=== PATIENT | male | born 1975 | race Caucasian/White ===

== ENCOUNTER 2019-11-15 21:05 | Emergency (ER) | payer BC, SELFPAY ==
--- NOTE | ~2019-11-15 | XR_ITS ---
EXAMINATION: XR chest 2V 11/15/2019 21:54 INDICATION: Chest pressure PROCEDURE: 2 view chest COMPARISON: No prior studies for comparison. FINDINGS: The lungs are clear. The cardiomediastinal silhouette is within normal limits. There are no pleural effusions. There is no pneumothorax suspected. IMPRESSION: 1: NO ACUTE CARDIOPULMONARY DISEASE. Reviewed, dictated and finalized at location A.
[2019-11-15 21:15] VITALS: BP 152/89; PULSE 75; RESP 18; TEMP 36.7; O2SAT 97
--- NOTE | 2019-11-15 21:19 | ECG_ITS ---
Measurements Intervals [place] Rate: 70 P: 29 NH: 204 QRS: 28 QRSD: 101 T: 2 QT: 369 QTc: 400 Interpretive Statements SINUS RHYTHM NORMAL ECG Electronically Signed On 11-16-2019 7:10:52 CDT by Linden Sebastian D.O.
--- NOTE | 2019-11-15 21:32 | ED.HA ---
HPI - Headache General Chief Complaint: Headache Stated Complaint: blood pressure is high Time Seen by Provider: 11/15/19 21:08 Source: patient Mode of arrival: ambulatory Limitations: no limitations History of Present Illness HPI Narrative: 44-year-old previously well man comes in today complaining of elevated blood pressure (160/100) at his father's home this evening. Patient states for the last 3 or so days he has had diffuse headache that ranges from a 1 to 3/10. He states he has also had some mild chest pressure which he describes as his heart beating harder than usual. He is concerned that his symptoms are from his elevated blood pressure. He denies shortness of breath, lightheaded, nausea, vomiting, cough or cold symptoms, sinus pressure, seasonal allergies, smoking, fever, recent head injury, or history of seizures. MD elicited complaint: headache Onset (ago): day(s) Onset description: gradually Location: diffuse Quality & Timing: dull Exacerbating factors: none Relieving factors: nothing Treatments prior to arrival: ibuprofen Related Data Home Medications Medication Instructions Recorded Confirmed No Home Medications 11/15/19 11/15/19 Allergies Allergy/AdvReac Type Severity Reaction Status Date / Time Penicillins Allergy Unknown Verified 11/15/19 21:22 Review of Systems Constitutional: Constitutional: Denies chills, Denies fever(s) and Denies weakness Eyes: Eyes: Denies change in vision and Denies photophobia ENT: Denies dysphagia, Denies nasal congestion and Denies sore throat Cardiovascular: Cardiovascular: Denies chest pain and Denies radiating jaw, neck or arm pain Respiratory: Respiratory: Denies cough, Denies dyspnea and Denies wheezing Gastrointestinal: Gastrointestinal: Denies abdominal pain, Denies nausea and Denies vomiting Musculoskeletal: Musculoskeletal: Denies back pain, Denies arthralgias and Denies joint swelling Integumentary/Breasts: Skin/Breast: Denies pruritus, Denies erythema and Denies rash Neurologic: Denies vertigo, Denies dizziness and Denies syncope Psychiatric: Psychiatric: Denies anxiety and Denies depression Endocrine: Endocrine: Denies polydipsia and Denies polyuria Hematologic/Lymphatic: Hematologic/Lymphatic: Denies easy bleeding and Denies easy bruising Allergic/Immunologic: Allergic/Immunologic: Denies lip swelling and Denies wheezing PMFSH Surgical History Surgical History H/O hand surgery History of appendectomy Social History Social History Smoking status: Never smoker Alcohol intake: current Substance use: never Living arrangements: with family Exam Const: General: healthy appearing, no acute distress and alert Nutritional Appearance: obese Orientation/consciousness: patient oriented x3 HENMT: Ears: external ears normal, TM's normal bilaterally and EAC's normal Mouth: Yes Normal oral and palatal mucosa present and Yes moist mucous membranes abnormal Throat: posterior oropharynx normal and uvula midline Eyes: Conjunctivae: conjunctivae normal Pupils: Equal, round and reactive pupils present EOM: EOMs intact bilaterally Resp: Effort & Inspection: normal respiratory effort and not labored Auscultation: clear to auscultation bilaterally, no rales, no rhonchi and no wheezes Cardio: Rate: regular rate Rhythm: regular rhythm Heart sounds: no murmurs Skin: General skin exam: normal color, no jaundice and no pallor Rashes: no rashes Neuro: General: patient oriented x3, moves all extremities, no focal motor deficits and CN's II-XI intact bilaterally Speech: normal speech Extrem: General: normal to inspection and no clubbing, cyanosis or edema Psych: Appearance: grossly normal and well kempt Mental Status: mental status grossly normal Affect: normal affect Attitude: cooperative Thought content: Yes Normal thought cont
[2019-11-15] MEDS: ASPIRIN 81 MG CHEWABLE TABLET 324 MG PO (21:34)
[2019-11-15 21:53] LABS: Basophils Absolute Auto 0.05 K/mm3 (0.00-0.10); Basophils Percent Auto 0.5 % (0.0-1.0); Eosinophils Absolute Auto 0.23 K/mm3 (0.02-0.50); Eosinophils Percent Auto 2.4 % (1.0-6.0); Hematocrit 43.4 % (40.0-54.0); Hemoglobin 14.5 g/dL (14.0-18.0); Immature Granulocyte Absolute 0.04 K/mm3 (0.00-0.00); Immature Granulocyte Percent A 0.4 % (0.0-0.0); Lymphocytes Absolute Auto 3.02 K/mm3 (1.10-4.50); Lymphocytes Percent Auto 31.7 % (18.0-42.0); Mean Corpuscular HGB Conc 33.4 g/dL (32.0-36.0); Mean Corpuscular Hemoglobin 29.5 pg (27.0-31.0); Mean Corpuscular Volume 88.4 fL (78.0-102.0); Mean Platelet Volume 9.8 fl (8.7-11.0); Monocytes Absolute Auto 0.88 K/mm3 (0.10-0.90); Monocytes Percent Auto 9.2 % (2.0-11.0); Neutrophils Absolute Auto 5.3 K/mm3 (1.7-7.2); Neutrophils Percent Auto 55.8 % (50.0-70.0); Platelet Count Result 311 K/mm3 (150-420); Red Blood Count 4.91 M/mm3 (4.70-6.10); Red Cell Distribution Width 12.7 % (11.6-14.4); White Blood Count 9.5 K/mm3 (4.8-10.8)
[2019-11-15 22:05] LABS: Partial Thromboplastin Time 25.5 SEC (22.3-31.6); Prothrombin Time 10.5 Seconds (9.64-11.0)
[2019-11-15 22:07] LABS: D Dimer 0.19 mg/L (0.19-0.50)
[2019-11-15 22:09] LABS: Alanine Aminotransferase 50 U/L (16-63); Albumin Level 3.8 g/dL (3.4-5.0); Alkaline Phosphatase 70 U/L (46-116); Anion Gap 13.7 mmol/L (7-16); Aspartate Amino Transferase 29 U/L (15-37); Bilirubin,Total 0.3 mg/dL (0.00-1.00); Blood Urea Nitrogen 15 mg/dL (7-18); Calcium 8.8 mg/dL (8.5-10.1); Carbon Dioxide 28 mmol/L (21-32); Chloride 105 mmol/L (98-108); Estimated CRCL calculation 100 ml/min; Estimated Glomerular Filt Rate > 60; Glucose 94 mg/dL (70-99); Osmolality Calculated 296 mOsm/kg (285-295); Potassium 3.7 mmol/L (3.5-5.1); Sodium 143 mmol/L (136-145); Total Protein 7.2 g/dL (6.4-8.2)
[2019-11-15 22:10] LABS: Troponin I < 0.02 ng/mL (0.00-0.056)
[2019-11-15 22:11] LABS: BNP 17.7 pg/mL (0-100)
[2019-11-15 22:39] VITALS: BP 135/76; PULSE 85; RESP 18; TEMP 36.6; O2SAT 98
== END 2019-11-15 22:43 | disposition home or self-care (01) ==
LOC: CHSED 21:10
PROVIDERS: Emergency Provider Emergency Medicine; PCP Internal Medicine
DX: R51 Headache (principal); R07.89 Other chest pain
CPT/HCPCS: 36415; 71046; 80053; 83880; 84484; 85025; 85380; 85610; 85730; 93005; 99283; 99284; A9270

== ENCOUNTER 2020-03-06 13:34 | Emergency (ER) | payer BC, SELFPAY ==
--- NOTE | ~2020-03-06 | XR_ITS ---
XR wrist LT min 3V 03/06/2020 14:01 INDICATION: Recent fall. Left wrist pain. PROCEDURE: 4 views left wrist COMPARISON: No prior studies for comparison. FINDINGS: Fracture, dislocation or subluxation is not identified. There is a side plate and screws tr ansfixing the fifth metacarpal. The soft tissues appear within normal limits. No foreign bodies are identified. IMPRESSION: 1: NO ACUTE BONE OR JOINT ABNORMALITY IDENTIFIED. Reviewed, dictated and finalized at location B.
--- NOTE | ~2020-03-06 | US_ITS ---
EXAMINATION: US venous doppler [facility] DATE: 03/06/2020 14:47 INDICATION: Left arm pain and swelling after recent fall TECHNIQUE: Peck scale images with and without compression and Doppler images of the left upper extrem ity veins were obtained. COMPARISON: None. FINDINGS: The left internal jugular vein, subclavian vein, axillary vein, brachial veins, basilic vein, cephali c vein, radial vein, and ulnar vein are patent.] IMPRESSION: 1. Patent left upper extremity veins. No evidence of deep venous thrombosis. Reviewed, dictated and finalized at location B.
--- NOTE | ~2020-03-06 | XR_ITS ---
XR elbow LT min 3V, XR forearm LT 2V 03/06/2020 14:01 Indication: Status post fall. Left arm pain. Procedure: 4 views left elbow and 2 views left forearm Comparison: No prior studies for comparison. Findings: No acute fracture or traumatic malalignment. No significant soft tissue abnormality. No rad iopaque foreign bodies. Impression: 1: No acute fracture. Reviewed, dictated and finalized at location B. Impression: 1: No acute fracture. Impression: 1: No acute fracture.
[2020-03-06 13:39] VITALS: BP 158/82; PULSE 69; RESP 20; TEMP 36.2; O2SAT 97
--- NOTE | 2020-03-06 14:12 | ECG_ITS ---
Measurements Intervals [place] Rate: 58 P: 50 UT: 211 QRS: 18 QRSD: 101 T: 4 QT: 406 QTc: 402 Interpretive Statements SINUS BRADYCARDIA WITH FIRST DEGREE AV BLOCK BORDERLINE T WAVE ABNORMALITY- INFERIOR LEADS ABNORMAL ECG Electronically Signed On 03-06-2020 16:12:42 CDT by Linden Sebastian D.O.
--- NOTE | 2020-03-06 14:22 | ED.GENADULT ---
HPI - General Adult General Chief complaint: Extremity Injury, Upper Stated complaint: left arm pain Time Seen by Provider: 03/06/20 13:52 Source: patient Mode of arrival: ambulatory Limitations: no limitations History of Present Illness HPI narrative: Patient is a 44-year-old male who presents to emergency department for evaluation of left arm pain noting tenderness and swelling of the left forearm patient notes this is been present for 3 days has been taking ibuprofen with minimal improvement patient notes that he had injured the hand 2 weeks ago but felt as though that had improved patient denies other complaints other than this morning having experienced some nausea Related Data Allergies Allergy/AdvReac Type Severity Reaction Status Date / Time Penicillins Allergy Unknown Verified 11/15/19 21:22 Review of Systems Review of Systems: All systems reviewed & are unremarkable except as noted in HPI and below PMFSH Surgical History Surgical History H/O hand surgery History of appendectomy Social History Social History Smoking status: Never smoker Alcohol intake: current Substance use: never Gender identity (if verbalized by the patient): Male Sexual Orientation (if Verbalized by the Patient): Straight or Heterosexual Exam Narrative: Exam Narrative: GENERAL: Well-appearing, well-nourished, and in no acute distress. HEAD: Normocephalic, atraumatic. EYES: PERRLA and EOMI. ENT: Nares clear, no rhinorrhea or epistaxis. Mucous membranes moist. CHEST: Clear to auscultation. No respiratory distress. No wheezes rales or rhonchi HEART: Regular rate and rhythm. No murmur heard. Normal peripheral pulses. EXTREMITIES: Normal range of motion. No edema. Tenderness of the left forearm with no erythema or deformities noted majority of tenderness is along the mid aspect of the forearm distal and proximal there is no deformity noted the tissues are soft SKIN: Warm, dry, no rash. NEURO: No focal deficits. Alert and oriented x3. Neurovascularly intact. Capillary refill less than 2 seconds PSYCH: Normal mood and affect. Course Course Emergency Course: Patient in the room at this time in no distress aware of case findings treatment plan and diagnosis felt appropriate for outpatient reevaluation Vital Signs Vital signs: Vital Signs Temperature 97.1 F L 03/06/20 13:39 Pulse Rate 69 09/18/20 13:39 Respiratory Rate 03/06/20 13:39 Blood Pressure 158/82 H 03/06/20 13:39 Pulse Oximetry 97 03/06/20 13:39 Temperature 97.1 F L 03/06/20 13:39 Pulse Rate 69 03/06/20 13:39 Respiratory Rate 03/06/20 13:39 Blood Pressure 158/82 H 03/06/20 13:39 Pulse Oximetry 97 03/06/20 13:39 Medical Decision Making MDM Narrative Medical decision making narrative: Patients injury or pain is consistent with musculoskeletal etiology. No signs of neurological or vascular compromise on exam. Compartments and tisues are soft without signs of compartment syndrome. Pain is felt appropriate for further evaluation on an outpatient basis. Vital Signs Vital Signs: Vital Signs Temperature 97.1 F L 03/06/20 13:39 Pulse Rate 03/06/20 13:39 Respiratory Rate 03/06/20 13:39 Blood Pressure 158/82 H 03/06/20 13:39 Pulse Oximetry 97 03/06/20 13:39 Temperature 97.1 F L 03/06/20 13:39 Pulse Rate 03/06/20 13:39 Respiratory Rate 03/06/20 13:39 Blood Pressure 158/82 H 03/06/20 13:39 Pulse Oximetry 97 03/06/20 13:39 Lab Data Result diagrams: 03/06/20 14:50 03/06/20 14:50 Labs: Lab Results 03/06/20 03/06/20 03/06/20 Range/Units 14:50 14:50 14:50 WBC 8.0 (4.5-10.0) K/mm3 RBC 5.28 (4.6-6.20) M/mm3 Hgb 15.7 (14.0-18.0) g/dL Hct 47.0 (42.0-52.0) % MCV 89.0 (80-100) fl MCH 29.7 (26-34) pg MCHC 33.4 (32-36)
[2020-03-06 14:58] LABS: Basophils Percent Auto 0.5 % (0.2-1.2); Eosinophils Absolute Auto 0.2 K/mm3 (0-0.3); Eosinophils Percent Auto 2.5 % (0-4.4); Hemoglobin 15.7 g/dL (14.0-18.0); Immature Granulocyte Absolute 0.01 K/mm3 (0.00-0.031); Immature Granulocyte Percent A 0.1 % (0-0.5); Lymphocytes Absolute Auto 2.37 K/mm3 (0.9-3.2); Lymphocytes Percent Auto 29.7 % (18.3-44.2); Mean Corpuscular HGB Conc 33.4 g/dl (32-36); Mean Corpuscular Hemoglobin 29.7 pg (26-34); Monocytes Absolute Auto 0.7 K/mm3 (0.1-0.6); Monocytes Percent Auto 8.3 % (2.6-8.5); Neutrophils Absolute Auto 4.7 K/mm3 (1.3-6.7); Neutrophils Percent Auto 58.9 % (45.5-73.1); Platelet Count Result 348 k/mm3 (150-375); Red Blood Count 5.28 M/mm3 (4.6-6.20); Red Cell Distribution Width 12.5 % (11.5-14.5)
[2020-03-06 15:07] LABS: Prothrombin Time 12.8 Seconds (11.1-14.7)
[2020-03-06 15:08] LABS: Partial Thromboplastin Time 28.4 SECONDS (22.3-36.8)
[2020-03-06 15:18] LABS: Alanine Aminotransferase 52 U/L (4-50); Albumin Level 4.7 g/dL (3.5-5.1); Alkaline Phosphatase 74 U/L (38-126); Anion Gap 7 mmol/L (8-16); Aspartate Amino Transferase 44 U/L (17-59); Bilirubin,Total 0.6 mg/dL (0.2-1.3); Blood Urea Nitrogen 16 mg/dL (9-20); Calcium 9.8 mg/dL (8.4-10.2); Carbon Dioxide 27 mmol/L (22-30); Chloride 104 mmol/L (98-107); Estimated CRCL calculation 116 ml/min; Estimated Glomerular Filt Rate > 60; Glucose 108 mg/dL (75-110); Potassium 3.9 mmol/L (3.4-5.0); Sodium 138 mmol/L (137-145)
[2020-03-06 15:30] LABS: Troponin I < 0.012 ng/mL (0.000-0.034)
[2020-03-06 16:12] VITALS: BP 136/88; PULSE 74; RESP 17; O2SAT 99
== END 2020-03-06 16:13 | disposition home or self-care (01) ==
PROVIDERS: Emergency Medicine Emergency Medical Services; Emergency Provider Emergency Medicine; PCP Internal Medicine
DX: M79.632 Pain in left forearm (principal); I44.0 Atrioventricular block, first degree
CPT/HCPCS: 36415; 73080; 73090; 73110; 80053; 84484; 85025; 85610; 85730; 93005; 93971; 99284

== ENCOUNTER 2020-06-20 06:34 | Outpatient (CLI) | payer BC, SELFPAY ==
--- NOTE | ~2020-06-20 | MR_ITS ---
EXAMINATION: MR cervical spine wo con DATE: 06/20/2020 11:29 INDICATION: Pain in unspecified joint. Pain between the shoulder blades. TECHNIQUE: Magnetic resonance imaging (MRI) of the cervical spine was performed without intravenous c ontrast. Sequences included sagittal T2-weighted FSE, sagittal T2-weighted FS FSE, sagittal T1-weight ed FSE, axial MERGE, and axial T2-weighted FSE. COMPARISON: None FINDINGS: Bone alignment is normal. Vertebral body heights and intervertebral disc heights are normal . The spinal cord signal intensity is normal. The following disc levels are specifically discussed: C2-C3: The disc does not extend beyond the endplate margin. There is no uncovertebral joint osteoarth ritis. There is moderate left facet joint osteoarthritis. There is mild left neural foraminal stenosi s. There is no central canal stenosis. C3-C4: The disc does not extend beyond the endplate margin. There is mild right uncovertebral joint o steoarthritis. There is mild right and moderate left facet joint osteoarthritis. There is mild left n eural foraminal stenosis. There is no central canal stenosis. C4-C5: The disc does not extend beyond the endplate margin. There is no uncovertebral joint osteoarth ritis. There is mild right and moderate left facet joint osteoarthritis. There is no neural foraminal stenosis. There is no central canal stenosis. C5-C6: The disc does not extend beyond the endplate margin. There is no uncovertebral joint osteoarth ritis. There is mild bilateral facet joint osteoarthritis. There is no neural foraminal stenosis. The re is no central canal stenosis. C6-C7: The disc does not extend beyond the endplate margin. There is no uncovertebral joint osteoarth ritis. There is mild bilateral facet joint osteoarthritis. There is no neural foraminal stenosis. The re is no central canal stenosis. C7-T1: The disc does not extend beyond the endplate margin. There is no uncovertebral joint osteoarth ritis. There is mild bilateral facet joint osteoarthritis. There is no neural foraminal stenosis. The re is no central canal stenosis. IMPRESSION: 1. Mild cervical spondylosis. Reviewed, dictated and finalized at location A. OR DIRECTOR INSIGHT
--- NOTE | ~2020-06-20 | MR_ITS ---
EXAMINATION: MR lumbar spine wo con DATE: 06/20/2020 11:29 INDICATION: Pain in unspecified joint. TECHNIQUE: Magnetic resonance imaging (MRI) of the lumbar spine was performed without intravenous con trast. Sequences included sagittal T2-weighted FSE, sagittal STIR FSE, sagittal T2-weighted FS FSE, s agittal T1-weighted FSE, and axial T2-weighted FSE. COMPARISON: None FINDINGS: Bone alignment is normal. Vertebral body heights are normal. There is mildly decreased disc height at L5-S1. There is developmental osseous central canal stenosis from L2 to L4. The distal spi nal cord signal intensity is normal. The conus medullaris is at L1. The following disc levels are spe cifically discussed: L1-L2: The disc does not extend beyond the endplate margin. There is no facet joint osteoarthritis. T here is no neural foraminal stenosis. There is no central canal stenosis. L2-L3: The disc does not extend beyond the endplate margin. There is mild right facet joint osteoarth ritis. There is no neural foraminal stenosis. There is mild central canal stenosis. L3-L4: The disc does not extend beyond the endplate margin. There is no facet joint osteoarthritis. T here is no neural foraminal stenosis. There is mild central canal stenosis. L4-L5: There is a left central protrusion with annular fissure. There is mild bilateral facet joint o steoarthritis. There is mild left neural foraminal stenosis. There is mild central canal stenosis. L5-S1: There is a left central protrusion with annular fissure. There is mild bilateral facet joint o steoarthritis. There is moderate right and mild left neural foraminal stenosis. There is mild central canal stenosis. IMPRESSION: 1. Mild lumbar spondylosis. Reviewed, dictated and finalized at location A. CER MACHINE OPERATOR IMPRESSION: 1. Mild lumbar spondylosis.
--- NOTE | ~2020-06-20 | MR_ITS ---
EXAMINATION: MR thoracic spine wo con DATE: 06/20/2020 11:29 INDICATION: Pain at unspecified joint. TECHNIQUE: Magnetic resonance imaging (MRI) of the thoracic spine was performed without intravenous c ontrast. Sagittal localizer T1-weighted FSE of the cervical spine was obtained. Thoracic spine sequen lynn included sagittal T2-weighted FSE, sagittal T1-weighted FSE, sagittal T2-weighted FS FSE, and axi al T2-weighted FSE. COMPARISON: None FINDINGS: Bone alignment is normal. There is mild chronic anterior wedging of T7 and T8 vertebral bod ies. There is mildly decreased disc height at T6-T7 and T7-T8 with endplate remodeling. At T7-T8, the re is a central protrusion with mild central canal stenosis and ventral indentation of the spinal cor d. The spinal cord signal intensity is normal. At T6, there is focal anterior displacement of the spi nal cord and decreased anteroposterior dimension of the spinal cord. There is mild facet joint osteoa rthritis at a few levels. No neural foraminal stenosis. IMPRESSION: 1. Deformation of the spinal cord at T6, which may be from cord herniation or an arachnoid cyst. 2. Mild thoracic spondylosis. Reviewed, dictated and finalized at location A. MENT STITCHER IMPRESSION: 1. Deformation of the spinal cord at T6, which may be from cord herniation or a n arachnoid cyst. 2. Mild thoracic spondylosis.
== END 2020-06-20 06:35 | disposition home or self-care (01) ==
PROVIDERS: PCP Family Medicine; Visit Provider Family Medicine
DX: M25.50 Pain in unspecified joint (principal)
CPT/HCPCS: 72141; 72146; 72148

== ENCOUNTER 2020-06-20 08:35 | Outpatient (CLI) | payer BC, SELFPAY ==
[2020-06-20 09:55] LABS: Erythrocyte Sedimentation Rate 6 mm/hr (0-15)
[2020-06-20 10:02] LABS: Rheumatoid Factor Screen Negative (Negative)
[2020-06-20 10:07] LABS: Cholesterol 246 mg/dL (0-200); Ferritin 256 ng/mL (26-388); HDL Direct 40 mg/dL (40-60); Iron 85 ug/dL (65-175); LDL Cholesterol Calculated 177 mg/dL (<130); Percent Iron Saturation 24 % (12-57); Triglycerides 146 mg/dL (0-150)
[2020-06-20 10:37] LABS: CRP < 0.2 mg/dL (0.0-0.9)
[2020-06-23 18:53] LABS: Lyme Disease Ab (IgM), Blot Positive (Negative); Lyme Disease Ab(IgG), Blot Negative (Negative)
== END 2020-06-20 08:36 | disposition home or self-care (01) ==
LOC: CHSLAB 08:36
PROVIDERS: PCP Family Medicine; Visit Provider Family Medicine
DX: M25.50 Pain in unspecified joint (principal); E66.01 Morbid (severe) obesity due to excess calories
CPT/HCPCS: 36415; 80061; 82728; 83540; 83550; 84443; 84550; 85652; 86038; 86140; 86430; 86617

== ENCOUNTER 2023-01-24 10:16 | Outpatient (CLI) | payer OTHER, SELFPAY ==
--- NOTE | 2023-01-24 10:48 | ECG_ITS ---
Measurements Intervals [place] Rate: 77 P: 57 PA: 164 QRS: 70 QRSD: 107 T: 36 QT: 360 QTc: 408 Interpretive Statements SINUS RHYTHM WITH BORDERLINE FIRST-DEGREE AV BLOCK WITHIN NORMAL LIMITS COMPARED TO ECG 03/06/2020 16:08:35 NO DIFFERENCE Electronically Signed On 01-24-2023 13:30:02 CDT by Kb Wakefield M.D.
[2023-01-24 10:50] LABS: Basophils Absolute Auto 0.04 K/mm3 (0.00-0.10); Basophils Percent Auto 0.5 % (0.0-1.0); Eosinophils Percent Auto 2.6 % (1.0-6.0); Hematocrit 47.2 % (40.0-54.0); Hemoglobin 15.8 g/dL (14.0-18.0); Immature Granulocyte Absolute 0.02 K/mm3 (0.00-0.00); Immature Granulocyte Percent A 0.3 % (0.0-0.0); Lymphocytes Absolute Auto 2.26 K/mm3 (1.10-4.50); Lymphocytes Percent Auto 29.3 % (18.0-42.0); Mean Corpuscular HGB Conc 33.5 g/dL (32.0-36.0); Mean Corpuscular Hemoglobin 29.4 pg (27.0-31.0); Mean Corpuscular Volume 87.9 fL (78.0-102.0); Mean Platelet Volume 9.7 fl (8.7-11.0); Monocytes Absolute Auto 0.66 K/mm3 (0.10-0.90); Monocytes Percent Auto 8.5 % (2.0-11.0); Neutrophils Absolute Auto 4.5 K/mm3 (1.7-7.2); Neutrophils Percent Auto 58.8 % (50.0-70.0); Platelet Count Result 346 K/mm3 (150-420); Red Blood Count 5.37 M/mm3 (4.70-6.10); Red Cell Distribution Width 12.6 % (11.6-14.4); White Blood Count 7.7 K/mm3 (4.8-10.8)
[2023-01-24 11:22] LABS: Alanine Aminotransferase 52 U/L (16-63); Albumin Level 4.1 g/dL (3.4-5.0); Alkaline Phosphatase 92 U/L (46-116); Anion Gap 11 mmol/L (8-16); Aspartate Amino Transferase 26 U/L (15-37); Bilirubin,Total 0.5 mg/dL (0.00-1.00); Blood Urea Nitrogen 19 mg/dL (7-18); Calcium 9.6 mg/dL (8.5-10.1); Carbon Dioxide 26 mmol/L (21-32); Chloride 104 mmol/L (98-108); Cholesterol 230 mg/dL (0-200); Estimated Glomerular Filt Rate > 60; Free T4 Free Thyroxine 0.83 ng/dL (0.76-1.46); Glucose 113 mg/dL (70-99); HDL Direct 48 mg/dL (40-60); Iron 78 ug/dL (65-175); LDL Cholesterol Calculated 156 mg/dL (<130); Magnesium 1.9 mg/dL (1.8-2.4); Osmolality Calculated 295 mOsm/kg (285-295); Potassium 4.6 mmol/L (3.5-5.1); Sodium 141 mmol/L (136-145); Thyroid Stimulating Hormone 1.59 uIU/mL (0.36-3.74); Total Protein 7.6 g/dL (6.4-8.2); Triglycerides 131 mg/dL (0-150)
[2023-01-24 11:38] LABS: CRP < 0.5 mg/dL (0.0-0.9)
[2023-01-25 18:10] LABS: Hemoglobin A1C 5.7 % (<5.7)
[2023-01-29 22:44] LABS: Vitamin D 25 Hydroxy 26 ng/mL (30-100)
== END 2023-01-24 10:17 | disposition home or self-care (01) ==
LOC: CHSLAB 10:18
PROVIDERS: PCP Family Medicine; Visit Provider Nurse Practitioner Family
DX: Z13.6 Encounter for screening for cardiovascular disorders (principal); E11.9 Type 2 diabetes mellitus without complications; A69.20 Lyme disease, unspecified; M25.50 Pain in unspecified joint; R53.83 Other fatigue; E66.01 Morbid (severe) obesity due to excess calories; Z79.899 Other long term (current) drug therapy
CPT/HCPCS: 36415; 80053; 80061; 82306; 83036; 83540; 83735; 84439; 84443; 85025; 86140; 93005

== ENCOUNTER 2023-12-14 14:43 | Emergency (ER) | payer OTHER, SELFPAY ==
--- NOTE | ~2023-12-14 | CT_ITS ---
EXAMINATION: CT cervical spine wo con DATE: 12/14/2023 15:11 INDICATION: Neck injury. TECHNIQUE: Computed tomography (CT) of the cervical spine was performed without intravenous contrast. Automated exposure control and iterative reconstruction technique were employed. The dose-length pro duct was 673.11 mGy-cm. COMPARISON: Cervical spine MRI 06/20/2020 FINDINGS: There is a right mastoid effusion. Alignment is normal. Vertebral body heights and interver tebral disc heights are normal. The following disc levels are specifically discussed: C2-C3: There is mild bilateral uncovertebral joint osteoarthritis. There is mild right and severe lef t facet joint osteoarthritis. There is mild left neural foraminal stenosis. There is no central canal stenosis. C3-C4: There is mild right and moderate left uncovertebral joint osteoarthritis. There is severe left facet joint osteoarthritis. There is mild left neural foraminal stenosis. There is no central canal stenosis. C4-C5: There is mild bilateral uncovertebral joint osteoarthritis. There is moderate left facet joint osteoarthritis. There is no neural foraminal stenosis. There is no central canal stenosis. C5-C6: There is mild bilateral uncovertebral joint osteoarthritis. There is mild right and moderate l eft facet joint osteoarthritis. There is mild left neural foraminal stenosis. There is no central can al stenosis. C6-C7: There is no uncovertebral joint osteoarthritis. There is no facet joint osteoarthritis. There is no neural foraminal stenosis. There is no central canal stenosis. C7-T1: There is no uncovertebral joint osteoarthritis. There is mild bilateral facet joint osteoarthr itis. There is no neural foraminal stenosis. There is no central canal stenosis. IMPRESSION: 1. No fracture. 2. Mild cervical spondylosis. Reviewed, dictated and finalized at location A.
--- NOTE | ~2023-12-14 | CT_ITS ---
EXAMINATION: CT brain wo con DATE: 12/14/2023 15:11 INDICATION: Head injury TECHNIQUE: Computed tomography (CT) of the head was performed without intravenous contrast. Sagittal and coronal reconstructions were performed. The mA was adjusted according to patient size. Iterative reconstruction technique was employed. The dose-length product was 673.11 mGy-cm. COMPARISON: None FINDINGS: No fracture. No acute intracranial hemorrhage, acute infarction or abnormal extra axial fluid collect ion. Ventricles are normal and symmetric. No mass/mass effect. Small right mastoid effusion. The orbi ts, paranasal sinuses and mastoid air cells are normal. IMPRESSION: 1. No fracture or acute intracranial process. Reviewed, dictated and finalized at location B.
[2023-12-14 14:49] VITALS: BP 164/71; PULSE 74; RESP 20; TEMP 36.8; O2SAT 95
[2023-12-14 14:58] VITALS: O2SAT 95
--- NOTE | 2023-12-14 15:07 | PC.NURSE ---
pt taken to CT of head
--- NOTE | 2023-12-14 15:26 | ED.HEATRA ---
HPI - Head Injury General Chief complaint: Head Injury Stated complaint: fall, hit head. Time Seen by Provider: 12/14/23 14:49 Source: patient and family Mode of arrival: ambulatory Limitations: no limitations History of Present Illness HPI Narrative: this is a 48 year male that presents with a head injury to the back of his head after he fell earlier today striking his head on a tractor causing lump to the occipital area with no cuts no lacerations unsure of loss of consciousness currently has a headache rates about a 6/10 feels nauseous with no neurological deficits. There is no fever chills no other injuries. Complaint: head injury Onset (ago): hour(s) Mechanism of Injury: fall Place: outdoors Loss of Consciousness: unsure Location of injury: occipital Severity: moderate Severity scale (1-10): 6 Related Data Allergies Allergy/AdvReac Type Severity Reaction Status Date / Time Penicillins Allergy Unknown Verified 12/14/23 14:59 Review of Systems Review of Systems: All systems reviewed & are unremarkable except as noted in HPI and below PMFSH Past Medical History Medical History DDD (degenerative disc disease) Diarrhea Elevated blood-pressure reading without diagnosis of hypertension Joint pain Lyme disease Morbid obesity with body mass index (BMI) of 40.0 to 49.9 T5 spinal cord injury Umbilical hernia Surgical History Surgical History H/O hand surgery History of appendectomy History of tonsillectomy and adenoidectomy Social History Social History Smoking status: Never smoker Alcohol intake: current Substance use: never Lack of Transportation: No Lack of Food: Never True Current Housing: I Have Housing Concerned About Future Housing: No Difficulty Paying Gas/Electric Bills: No Difficulty Paying for Meds: No Currently Unemployed: No Education: High School Diploma/GED Difficulty w/ Childcare or Family Care: No Living arrangements: with family Gender identity (if verbalized by the patient): Male Sexual Orientation (if Verbalized by the Patient): Straight or Heterosexual Exam Const: General: healthy appearing, no acute distress and alert Nutritional Appearance: well nourished Orientation/consciousness: patient oriented x3 Limitations: no limitations HENMT: Head: normal to inspection Eyes: Conjunctivae: conjunctivae normal Pupils: Equal, round and reactive pupils present Neck: Neck: normal visual inspection and no lymphadenopathy Chest: Chest palpation & inspection: normal inspection of the chest Resp: Effort & Inspection: normal respiratory effort Auscultation: clear to auscultation bilaterally Cardio: Rate: regular rate Rhythm: regular rhythm GI: GI Palp: Yes Soft to palpation Auscultation: normal bowel sounds Back/Spine/Pelvis: Back: no CVA tenderness Skin: General skin exam: normal color Wounds: wounds noted Neuro: General: patient oriented x3, moves all extremities, no meningeal signs and no focal motor deficits Course Course Emergency Course: Patient received 60mg IM Toradol and a dose of ODT Zofran after reassessment patient's symptoms have improved. CT scans of the brain and cervical spine reviewed and with no acute abnormalities. Vital Signs Vital signs: Vital Signs Temperature 36.8 C 12/14/23 14:49 Pulse Rate 74 12/14/23 14:49 Respiratory Rate 20 12/14/23 14:49 Blood Pressure 164/71 H 12/14/23 14:49 Pulse Oximetry 95 12/14/23 14:49 Oxygen Delivery Room Air 12/14/23 14:49 Temperature 36.8 C 12/14/23 14:49 Pulse Rate 74 12/14/23 14:49 Respiratory Rate 20 12/14/23 14:49 Blood Pressure 164/71 H 12/14/23 14:49 Pulse Oximetry 95 12/14/23 14:58 Oxygen Delivery Room Air 12/14/23 14:58 Critical Care Time Critical Care Time Critic
[2023-12-14] MEDS: KETOROLAC (*BKC) 60 MG/2 ML VIAL IM (15:28)
[2023-12-14 15:44] VITALS: BP 158/68; PULSE 69; RESP 20; TEMP 36.7; O2SAT 95
== END 2023-12-14 15:46 | disposition home or self-care (01) ==
LOC: CHSED 15:35
PROVIDERS: Emergency Provider Emergency Medicine; PCP Family Medicine
DX: S09.90XA Unspecified injury of head, initial encounter (principal); W20.8XXA Other cause of strike by thrown, projected or falling object, initial encounter
CPT/HCPCS: 70450; 72125; 96372; 99284; A9270; J1885

== ENCOUNTER 2025-02-18 09:29 | Outpatient (CLI) | payer OTHER, SELFPAY ==
[2025-02-18 09:43] LABS: Hematocrit 45.6 % (40.0-54.0); Hemoglobin 15.0 g/dL (14.0-18.0); Immature Granulocyte Percent A 0.1 % (0.0-0.0); Lymphocytes Absolute Auto 2.18 K/mm3 (1.10-4.50); Mean Corpuscular HGB Conc 32.9 g/dL (32-36); Mean Corpuscular Hemoglobin 29.5 pg (27.0-31.0); Mean Corpuscular Volume 89.6 fL (78.0-102.0); Nucleated Red Blood Cells Absolute Auto 0.00 K/mm3 (0.00-0.00); Nucleated Red Blood Cells Perc 0.0 % (0-0.0); Platelet Count Result 349 K/mm3 (150-420); Red Blood Count 5.09 M/mm3 (4.70-6.10); White Blood Count 8.1 K/mm3 (4.8-10.8)
--- OUTSIDE RECORDS SUMMARY | 2025-02-18 09:44 | XMS_ITS | Clinical Summary ---
Author Organization [facility] Add[facility] Address [address] [place] [address] Care Team Providers Care Numerical Control Machine Machinist Name Role Phone Phillip Hunt MD Primary Care Provider [phone] Source Comments [facility],non-owned Affiliates and Associated Physician Practices is amultiple site organization consisting of ambulatory clinics and hospital sitesin [place], [place], [place] and [place]. This disclosure is being madepursuant to the Care Everywhere program and may not contain all information available regarding this patient. Last updated 18.[facility] Allergies Active Allergy Reactions Criticality Noted Date Comments Penicillins Urticaria Medium 08/02/2017 Medications * Be aware that medications may not be up to date on this document. Alwaysverify current medications with the patient. azithromycin (ZITHROMAX) 250 MG tabletIndications:O ther acute nonsuppurative otitis media of right ear, recurrence not specified Take 2 tablets now, then 1 tablet daily for 4 days. 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 Gender Identity Not on file Sexual Orientation Not on file Last Filed Vital Signs Vital Sign Reading Time Taken Comments Blood Pressure 130/80 08/02/2017 6:07 PM DAIRY BACTERIOLOGIST Pulse 96 08/02/2017 6:07 PM DAIRY BACTERIOLOGIST Temperature 36.8 C (98.3 F) 08/02/2017 6:07 PM DAIRY BACTERIOLOGIST Respiratory Rate 16 08/02/2017 6:07 PM DAIRY BACTERIOLOGIST Oxygen Saturation 98% 08/02/2017 6:07 PM DAIRY BACTERIOLOGIST Inhaled Oxygen Concentration - - Weight 136.1 kg (300 lb) 08/02/2017 6:07 PM DAIRY BACTERIOLOGIST Height 177.8 cm (5' 10) 08/02/2017 6:07 PM DAIRY BACTERIOLOGIST Body Mass Index 43.05 08/02/2017 6:07 PM DAIRY BACTERIOLOGIST Plan of Treatment Health Maintenance Due Date Last Done Comments COLOGUARD (AGES 45-75) - COL ON CA SCREENING 1975 COLON MONITORING 1975 COLONOSCOPY - COLON CA SCREENING 1975 CT COLONOGRAPHY - COLON CA SCREENING 1975 Colorectal Cancer Screening 1975 FIT - COLON CA SCREENING 1975 FLEX SIG - COLON CA SCREENING 1975 LIPID TESTING 1975 HIV SCREENING 1990 HEPATITIS C SCREENING 08/06/1993 DTAP/TDAP/TD VACCINES (1 - Tdap) 1994 HEPATITIS B VACCINE (1 of 3 - 19+ 3-dose series) 1994 COVID-19 VACCINE (1 - 2023-2 5 season) 2024 DEPRESSION SCREENING 06/19/2024 INFLUENZA VACCINE (#1) 2025 ZOSTER VACCINE (1 of 2) 2025 HIB VACCINE Aged Out No longer eligi ble based on patient's age to complete this topic HPV VACCINE Aged Out No longer eligi ble based on patient's age to complete this topic MENINGOCOCCAL (Group B) VACC INE SHARED DECISION-MAKING Aged Out No longer eligibl e based on patient's age to complete this topic MENINGOCOCCAL GROUPS A/C/Y/W VACCINE Aged Out No longer eligible b ased on patient's age to complete this topic Insurance [facility] Care Teams Numerical Control Machine Machinist Relationship Specialty Start Date End Date Phillip Hunt MD [address] [id number] PCP - General Internal Medicine 08/02/17
--- OUTSIDE RECORDS SUMMARY | 2025-02-18 09:44 | XMS_ITS | Clinical Summary ---
Author Organization [facility] Address [facility] [place] [address] Care Team Providers Care Plant And Equipment Worker Name Role Phone None, Provider MD Primary Care Provider Unavaila ble Allergies Active Allergy Reactions Criticality Noted Date Comments Penicillins Hives Medium 08/02/2017 Medications meloxicam (MOBIC) 15 MG tablet Take 1 tablet (15 mg total) by mouth daily. 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 Gender Identity Not on file Sexual Orientation Not on file Last Filed Vital Signs Vital Sign Reading Time Taken Comments Blood Pressure 122/78 12/22/2023 5:52 PM CDT Pulse 70 12/22/2023 5:52 PM CDT Temperature 35.6 C (96 F) 12/22/2023 5:52 PM CDT Respiratory Rate 18 12/22/2023 5:52 PM CDT Oxygen Saturation 98% 12/22/2023 5:52 PM CDT Inhaled Oxygen Concentration - - Weight 142.9 kg (315 lb) 12/22/2023 5:52 PM CDT Height 177.8 cm (5' 10) 12/22/2023 5:52 PM CDT Body Mass Index 45.2 12/22/2023 5:52 PM CDT Plan of Treatment Health Maintenance Due Date Last Done Comments Colorectal Cancer Screening Colonoscopy (10 Years) 1975 Annual Physical 1978 Hepatitis C 1993 DTaP, Tdap and Td Vaccines ( 1 - Tdap) 1994 Hepatitis B Vaccines (1 of 3 - 19+ 3-dose series) 1994 COVID-19 Vaccine (1 - 2023-2 5 season) 2024 PHQ-2 (Physician [place]) 06/19/2024 12/22/2023 Meningococcal B Vaccine Aged Out No l onger eligible based on patient's age to complete this topic Meningococcal Vaccine Aged Out No annel opal eligible based on patient's age to complete this topic Pneumococcal Vaccine: Pediat rics (0 to 5 Years) and At-Risk Patients (6 to 49 Years) Aged Out No longer eligi ble based on patient's age to complete this topic RSV Immunizations Under 20 Months Aged Out No longer eligible based on patient's age to complete this topic Insurance [employer] Care Teams Plant And Equipment Worker Relationship Specialty Start Date End Date None, Provider, PCP - General UNKNOWN PHYSICIAN SPECIALTY 12/22/23
[2025-02-18 10:01] LABS: Hemoglobin A1C 5.7 % (<5.7)
[2025-02-18 10:14] LABS: Alanine Aminotransferase 40 U/L (6-50); Albumin Level 4.8 g/dL (3.5-5.1); Alkaline Phosphatase 76 U/L (38-126); Anion Gap 10 mmol/L (4-12); Aspartate Amino Transferase 38 U/L (17-59); Bilirubin,Total 0.8 mg/dL (0.2-1.3); Blood Urea Nitrogen 18 mg/dL (9-20); Calcium 10.3 mg/dL (8.4-10.2); Carbon Dioxide 26 mmol/L (22-30); Chloride 105 mmol/L (98-107); Cholesterol 220 mg/dL (0-200); Estimated Glomerular Filt Rate > 60; Glucose 107 mg/dL (65-110); HDL Direct 43 mg/dL; Osmolality Calculated 293 mOsm/kg (285-295); Potassium 4.9 mmol/L (3.4-5.0); Sodium 141 mmol/L (137-145); Total Protein 7.5 g/dL (6.3-8.2); Triglycerides 199 mg/dL (<150)
[2025-02-18 10:45] LABS: Thyroid Stimulating Hormone Reflex 1.610 uIU/mL (0.465-4.68)
== END 2025-02-18 09:30 | disposition home or self-care (01) ==
LOC: CHSLAB 09:29
PROVIDERS: PCP Family Medicine; Visit Provider Nurse Practitioner Family
DX: Z00.00 Encounter for general adult medical examination without abnormal findings (principal)
CPT/HCPCS: 36415; 80053; 80061; 83036; 84443; 85025